=== PATIENT | female | born 1965 | race Caucasian/White ===

== ENCOUNTER 2024-07-22 06:43 | Day surgery (SDC) | payer OTHER ==
[2024-07-22] MEDS ORDERED: Propofol 200 MG/20 ML SDV IV ONE (06:44)
[2024-07-22] MEDS ORDERED: Ondansetron 4 MG/2 ML SDV IVPUSH ONE (06:44)
[2024-07-22] MEDS ORDERED: Lidocaine 2% 100 MG/5 ML Syringe IVPUSH ONE (06:44)
[2024-07-22] MEDS ORDERED: Sodium Chloride 0.9% 10 ML Syringe FLUSH PRN (06:45)
[2024-07-22] MEDS: Lactated Ringers 1,000 ML IV SCH (07:41)
[2024-07-22] MEDS: Simethicone Drops 40 MG/0.6 ML 30 ML Bottle ONE (08:43)
== END 2024-07-22 09:53 | disposition home or self-care (01) ==
LOC: FB.SDS 06:43
PROVIDERS: ATTEND Surgery
DX: Z12.11 Encounter for screening for malignant neoplasm of colon (principal); F17.210 Nicotine dependence, cigarettes, uncomplicated
CPT/HCPCS: A9270-GY; J2405; J2704; J7120

== ENCOUNTER 2025-01-24 05:59 | Day surgery (SDC) | payer BC, OTHER ==
[2025-01-24] MEDS ORDERED: Propofol 200 MG/20 ML SDV IV ONE (06:00)
[2025-01-24] MEDS ORDERED: Midazolam 1 MG/ML 2 ML SDV IV ONE (06:00)
[2025-01-24] MEDS ORDERED: fentaNYL 100 MCG/2 ML SDV IV ONE (06:00)
[2025-01-24] MEDS ORDERED: Sodium Chloride 0.9% 10 ML Syringe FLUSH PRN (06:15)
[2025-01-24] MEDS: Lactated Ringers 1,000 ML IV SCH (07:08)
== END 2025-01-24 09:01 | disposition home or self-care (01) ==
LOC: FB.SDS 05:59
PROVIDERS: ATTEND Surgery
DX: K29.50 Unspecified chronic gastritis without bleeding (principal); K31.89 Other diseases of stomach and duodenum; R13.10 Dysphagia, unspecified; Z88.0 Allergy status to penicillin; Z88.8 Allergy status to other drugs, medicaments and biological substances; Z88.2 Allergy status to sulfonamides; Z79.899 Other long term (current) drug therapy
CPT/HCPCS: 00731; 43239; 88305; 88342; A9270; J2250; J2704; J3010; J7120